=== PATIENT | female | born 1980 | race Caucasian/White ===

== ENCOUNTER 2017-07-08 17:51 | Emergency (ER) | payer MEDICAID ==
[2017-07-08 17:51] VITALS: BMI 29.5
[2017-07-08 19:04] LABS: RBC URINE 7 /hpf (0-3); URINE BACTERIA FEW (<OCC); URINE BILIRUBIN NEGATIVE (NEGATIVE); URINE BLOOD 2+ (NEGATIVE); URINE COLOR Yellow (YELLOW); URINE GLUCOSE (UA) NORMAL (Normal); URINE KETONE TRACE mg/dL (NEGATIVE); URINE LEUKOCYTE ESTERASE 2+ Leu/uL (Negative); URINE PROTEIN 1+ mg/dL (NEGATIVE); URINE UROBILINOGEN NORMAL mg/dL (0.2-1.0); WBC URINE 30 /hpf (0-5)
[2017-07-08] MEDS ORDERED: Lactated Ringer's 1,000 ML IVB ONE (19:07)
[2017-07-08 19:50] LABS: BASO # 0.2 K/uL (0.0-0.2); EOS # 0.3 K/uL (0.0-0.7); EOS % 1.5 % (0.0-4.0); HEMATOCRIT 33.2 % (34.0-47.0); LYMPH # 2.8 K/uL (1.0-4.3); LYMPH % 16.2 % (20.0-40.0); MEAN CELL VOLUME 75.7 fL (81.0-99.0); MEAN CORPUSCULAR HEMOGLOBIN 23.1 pg (27.0-31.0); MEAN CORPUSCULAR HGB CONC 30.5 g/dL (33.0-37.0); MEAN PLATELET VOLUME 7.9 fL (7.2-11.7); MONO # 1.2 K/uL (0.0-0.8); MONO % 6.8 % (0.0-10.0); RED CELL DISTRIBUTION WIDTH 21.8 % (11.5-14.5); WHITE BLOOD COUNT 17.4 K/uL (4.8-10.8)
[2017-07-08 20:00] LABS: ALB/GLOB RATIO 1.2 (1.0-2.1); ALKALINE PHOSPHATASE 78 U/L (38-126); ALT/SGPT 29 U/L (9-52); AST/SGOT 21 U/L (14-36); BILIRUBIN,TOTAL 0.4 mg/dL (0.2-1.3); BLOOD UREA NITROGEN 3 mg/dL (7-17); CALCIUM 8.4 mg/dl (8.6-10.4); CARBON DIOXIDE 24 mmol/L (22-30); CHLORIDE 104 mmol/L (98-107); GFR AFRICAN-AMERICAN > 60; GLUCOSE,RANDOM 80 mg/dL (65-105); POTASSIUM 4.3 mmol/L (3.6-5.2); SODIUM 137 mmol/L (132-148); TOTAL PROTEIN 6.9 g/dL (6.3-8.3)
[2017-07-08] MEDS ORDERED: Lactated Ringer's 1,000 ML ONE (20:22)
--- NOTE | 2017-07-08 20:40 | US ---
PROCEDURE: Obstetrical ultrasound HISTORY: Abdominal pain COMPARISON: Not available TECHNIQUE: Transabdominal FINDINGS: There is a single live intrauterine gestation in vertex presentation. The heart rate is 155 beats per minute. A grossly normal quantity of amniotic fluid is visualized. There is a normal posterior placenta. There is no evidence of placenta previa. The cervix is closed and measures 4.0 cm in length. biometry yields a gestational age of 18 weeks 2 days. The estimated weight is 223.00 g. The DIVYA by ultrasound is 12/07/2017. Limited review of anatomy demonstrates fluid distending the stomach and urinary bladder. Two normal kidneys are demonstrated without evidence hydronephrosis. The anterior abdominal wall is intact. A 4 chamber heart is not adequately demonstrated at this time. No gross anomaly of the spine is evident. Full anatomic evaluation has not been performed at this time. IMPRESSION: Single live intrauterine gestation of approximately 18 weeks 6 days gestational age. Posterior placenta. No previa. Cervix long and closed. Grossly normal amniotic fluid volume. heart rate 155 beats per minute. No gross anatomic abnormality. Only limited review of anatomy is performed at this time.
[2017-07-08] MEDS ORDERED: cefTRIAXone IV 1 gm in Dextros 50 ML IVPB STA (20:56)
[2017-07-08] MEDS ORDERED: cefTRIAXone 1 gm 1 GM/100 ML BAG IVPB STA (21:29)
--- NOTE | 2017-07-08 22:27 | C.PDOC ---
Time Seen by Provider: 07/08/17 18:19 Chief Complaint (Nursing): Abdominal Pain History Per: Patient Onset/Duration Of Symptoms: Days (1) Current Symptoms Are (Timing): Still Present Severity: Moderate Quality Of Discomfort: Cramping Exacerbating Factors: None Alleviating Factors: None Additional History Per: Prior Records Abnormal Vaginal Bleeding: No Last Menstral Period: begining of April 2017 Past Medical History Reviewed: Historical Data, Nursing Documentation, Vital Signs Vital Signs: Last Vital Signs Temp 98 F 07/08/17 17:54 Pulse 90 07/08/17 17:54 Resp 18 07/08/17 17:54 BP 112/74 07/08/17 17:54 Pulse Ox 100 07/08/17 17:54 - Medical History PMH: No Chronic Diseases Surgical History: - [facility] Procedures LOW CERVICAL (06/23/14) Family History: States: Unknown Family Hx - Social History Hx Alcohol Use: No Hx Substance Use: No - Immunization History Hx Tetanus Toxoid Vaccination: No Hx Influenza Vaccination: No Hx Pneumococcal Vaccination: No Review Of Systems Except As Marked, All Systems Reviewed And Found Negative. Constitutional: Negative for: Fever, Chills Cardiovascular: Negative for: Chest Pain Respiratory: Negative for: Cough, Shortness of Breath Gastrointestinal: Positive for: Abdominal Pain. Negative for: Vomiting, Diarrhea Genitourinary: Negative for: Dysuria, Vaginal Discharge, Vaginal Bleeding Musculoskeletal: Negative for: Neck Pain Skin: Negative for: Rash Neurological: Negative for: Weakness, Numbness Physical Exam - Physical Exam Appears: Non-toxic, No Acute Distress Skin: Normal Color, Warm, Dry, No Rash Head: Atraumatic, Normacephalic Eye(s): bilateral: PERRL, EOMI Oral Mucosa: Moist Neck: Normal ROM, Supple Cardiovascular: Rhythm Regular Respiratory: Normal Breath Sounds, No Accessory Muscle Use Gastrointestinal/Abdominal: Soft, No Tenderness, Other (Gravid) Back: No CVA Tenderness Extremity: Normal ROM Neurological/Psych: Oriented x3, Normal Motor, Normal Sensation ED Course And Treatment - Laboratory Results Result Diagrams: 07/08/17 19:44 07/08/17 19:44 Interpretation Of Abnormal: UTI. Leukocytosis. Urine POC: Positive O2 Sat by Pulse Oximetry: 100 Pulse Ox Interpretation: Normal - CT Scan/US Pelvic US Other Rad Studies (CT/US): Read By Radiologist, Radiology Report Reviewed CT/US Interpretation: IMPRESSION: Single live intrauterine gestation of approximately 18 weeks 6 days gestational age. Posterior placenta. No previa. Cervix long and closed. Grossly normal amniotic fluid volume. heart rate 155 beats per minute. No gross anatomic abnormality. Only limited review of anatomy is performed at this time. Progress Note: I offered pt admission to the hospital for further evaluation and treatment. Pt declined and wants to go home as she is asymptomatic now. Her abdominal pain resolved. Reassessment Condition: Improved Progress - Interventions Interventions:: Observation, Intravenous fluid - Medications Administered Oral: Acetaminophen - Data Reviewed Data Reviewed: Lab, Old records - Patient Status Patient status: Mostly improved - Continuity of Care Discussed patient case with:: Patient, ED Nurse - Patient Plan Patient Plan: Discharge, F/U with PCP Disposition Counseled Patient/Family Regarding: Studies Performed, Diagnosis, Need For Followup, Rx Given - Disposition Disposition: HOME/ ROUTINE Disposition Time: 22:31 Condition: IMPROVED Additional Instructions: Drink plenty of fluids. Follow up with an Mail Handler Equipment Operator doctor within 1 week. Return to the ER if you develop fever, chills, abdominal pain, vaginal bleeding, worsening of symptoms or if you have any other concerns. Prescriptions: Cephalexin [Keflex] 500 mg PO BID #14 capsule Instructions: Abdominal Pain in (ED), Urinary Tract Infection in (ED) - Clinical Impression Clinical Impression: Abdominal pain, with 19 completed weeks gestation, UTI (urinary tract infection)
[2017-07-08 22:42] VITALS: BP 103/68; PULSE 76; RESP 16; TEMP 98.3; O2SAT 99
== END 2017-07-08 22:42 | disposition home or self-care (01) ==
LOC: C.ER 17:51
DX: O23.42 Unspecified infection of urinary tract in pregnancy, second trimester (principal); Z3A.19 19 weeks gestation of pregnancy
CPT/HCPCS: 76815; 80053; 81001; 83690; 84702; 84703; 85025; 87086; 96374; 99284; J0696; J7120

== ENCOUNTER 2018-04-05 19:19 | Emergency (ER) | payer MEDICAID ==
[2018-04-05 19:19] VITALS: BMI 29.5
[2018-04-05 19:27] VITALS: BP 105/73; PULSE 88; RESP 18; TEMP 97.7; O2SAT 99
[2018-04-05] MEDS ORDERED: Amoxicillin-Clav 875-125 mg Tab PO STA (19:49)
[2018-04-05] MEDS ORDERED: Amoxicillin-Clav 875-125 mg Tab PO ONE (19:54)
--- NOTE | 2018-04-05 20:17 | C.PDOC ---
History Of Present Illness 37 year old female presents to the emergency department with complaints of pain to her left ear since yesterday, associated with drainage. Patient reports that she recently went swimming and pain worsens when she moves her ear. Otherwise she denies any headache, vomiting, dizziness, or hearing changes. Time Seen by Provider: 04/05/18 19:28 Chief Complaint (Nursing): ENT Problem History Per: Patient History/Exam Limitations: None Onset/Duration Of Symptoms: Days Current Symptoms Are (Timing): Still Present Past Medical History Reviewed: Historical Data, Nursing Documentation, Vital Signs Vital Signs: Last Vital Signs Temp 97.7 F 04/05/18 19:25 Pulse 88 04/05/18 19:25 Resp 18 04/05/18 19:25 BP 105/73 04/05/18 19:25 Pulse Ox 99 04/05/18 21:45 - Medical History PMH: Denies: Chronic Kidney Disease Surgical History: - [facility] Procedures LOW CERVICAL (06/23/14) Family History: States: No Known Family Hx - Social History Hx Alcohol Use: No Hx Substance Use: No - Immunization History Hx Tetanus Toxoid Vaccination: No Hx Influenza Vaccination: No Hx Pneumococcal Vaccination: No Review Of Systems Except As Marked, All Systems Reviewed And Found Negative. ENT: Positive for: Ear Pain (Left), Other (Left ear drainage) Gastrointestinal: Negative for: Nausea, Vomiting Neurological: Negative for: Weakness, Numbness, Headache Physical Exam - Physical Exam Appears: Non-toxic, No Acute Distress Skin: Warm, Dry, No Rash Head: Atraumatic, Normacephalic Eye(s): bilateral: Normal Inspection Ear(s): Left: Other (Positive yellow drainage from external canal; tenderness with pulling of pinna), Right: Normal Oral Mucosa: Moist Throat: No Erythema, No Exudate Neck: Normal ROM, Supple Chest: Symmetrical, No Tenderness Neurological/Psych: Oriented x3, Normal Speech, Normal Motor Gait: Steady ED Course And Treatment O2 Sat by Pulse Oximetry: 99 (RA) Pulse Ox Interpretation: Normal Medical Decision Making Medical Decision Making: Plan: -Motrin 600 mg PO -Augmentin 1 tab PO Disposition - Disposition Referrals: [facility] [Outside] Disposition: HOME/ ROUTINE Disposition Time: 20:13 Condition: GOOD Additional Instructions: Follow up with the medical doctor/clinic within 1-2 days. return if worsened. Prescriptions: Amoxicillin/Clavulanate [Augmentin 875 MG-125 MG] 1 tab PO BID #14 tab Ciprofloxacin/Hydrocortisone [Cipro Hc Otic Suspension] 4 drop BID #10 ml Instructions: Outer Ear Infection (DC) Forms: [employer] (Bel[place]ian) - Clinical Impression Clinical Impression: Otitis externa - PA / DESK MANAGER / Resident Statement MD/DO has reviewed & agrees with the documentation as recorded. - Scribe Statement The provider has reviewed the documentation as recorded by the Scribe Bárbara Winslow All medical record entries made by the Shainaiblorenzo were at my direction and personally dictated by me. I have reviewed the chart and agree that the record accurately reflects my personal performance of the history, physical exam, medical decision making, and the department course for this patient. I have also personally directed, reviewed, and agree with the discharge instructions and disposition.
== END 2018-04-05 20:30 | disposition home or self-care (01) ==
LOC: C.ER 19:19
DX: H60.92 Unspecified otitis externa, left ear (principal)